=== PATIENT | male | born 1985 | race Caucasian/White ===

== ENCOUNTER 2018-09-09 21:49 | Emergency (ER) | payer OTHER ==
[~2018-09-09] VITALS: Ht 177.8 cm; Wt 95.2 kg
[~2018-09-09 21:49] MED LIST: CODACE30 PO; CYCL10 PO; IBUP200; NAPR500 PO; OXYACE7.5T PO; RXCODACET PO; RXCYCL10 PO; RXOXYACE PO; SULTRIDS PO
[2018-09-09] MEDS ORDERED: BENZ100A PO (23:40)
== END 2018-09-09 23:47 | disposition home or self-care (01) ==
LOC: ER 21:49
DX: J11.1 Influenza due to unidentified influenza virus with other respiratory manifestations (principal); R04.2 Hemoptysis
CPT/HCPCS: 71046; 99283-25

== ENCOUNTER 2020-08-15 14:16 | Emergency (ER) | payer OTHER ==
[~2020-08-15] VITALS: Ht 180.3 cm; Wt 99.8 kg
[~2020-08-15 14:16] MED LIST changes: +BENZ100A PO
[2020-08-15 15:31] LABS: BASOPHILS ABSOLUTE AUTO 0.03 K/mm3 (0.00-0.23); BASOPHILS PERCENT AUTO 0 % (0-2); EOSINOPHILS ABSOLUTE AUTO 0.21 K/mm3 (0.00-0.68); EOSINOPHILS PERCENT AUTO 3 % (0-6); Hematocrit 43.5 % (37.0-53.0); Hemoglobin 15.4 g/dL (13.5-17.5); IMMATURE GRAN ABSOLUTE AUTO 0.03 K/mm3 (0.00-0.10); IMMATURE GRAN PERCENT AUTO 0 % (0-1); LYMPHOCYTES ABSOLUTE AUTO 2.37 K/mm3 (0.84-5.20); LYMPHOCYTES PERCENT AUTO 28 % (21-46); MONOCYTES ABSOLUTE AUTO 1.04 K/mm3 (0.16-1.47); MONOCYTES PERCENT AUTO 12 % (4-13); Mean Corpuscular HGB 29.6 pg (26.0-34.0); Mean Corpuscular HGB Conc 35.4 g/dL (31.5-36.5); Mean Corpuscular Volume 84 fL (80-100); Mean Platelet Volume 13.3 fL (9.1-12.4); NEUTROPHILS ABSOLUTE AUTO 4.69 K/mm3 (1.96-9.15); NEUTROPHILS PERCENT AUTO 56 % (41-73); Platelet Count 194 K/mm3 (150-400); RDW Coefficient Variation 11.7 % (11.7-14.2); RDW Standard Deviation 35.4 fL (35.1-46.3); Red Blood Cell Count 5.21 M/mm3 (4.30-5.90); White Blood Cell Count 8.37 K/mm3 (4.00-11.30)
[2020-08-15 15:45] LABS: Alanine Aminotransfer (ALT/SGP 38 U/L (12-78); Albumin, Blood 4.3 g/dL (3.4-5.0); Albumin/Globulin Ratio 1.3 (0.8-1.8); Alk Phos 93 U/L (50-136); Anion Gap 8 mmol/L (6-16); Aspartate Aminotrans (AST/SGOT 23 U/L (12-37); Bilirubin, Total 0.4 mg/dL (0.1-1.0); Blood Urea Nitrogen 11 mg/dL (8-24); Bun/Creatinine Ratio 11.4 (12.0-20.0); CO2, Blood 23 mmol/L (21-32); Calcium, Blood 8.8 mg/dL (8.5-10.1); Chloride, Blood 109 mmol/L (98-108); Creatinine, Blood 0.96 mg/dL (0.60-1.20); Globulin, Blood 3.4 g/dL (2.2-4.0); Glomerular Filtration Rate >60 (60-); Glucose, Blood 97 mg/dL (70-99); Potassium, Blood 3.3 mmol/L (3.5-5.5); Sodium, Blood 140 mmol/L (136-145); Total Protein, Blood 7.7 g/dL (6.4-8.2); Troponin I <0.015 ng/mL (0.000-0.040)
== END 2020-08-15 17:08 | disposition home or self-care (01) ==
LOC: ER 14:16
PROVIDERS: Physician Assistant
DX: F41.0 Panic disorder [episodic paroxysmal anxiety] (principal)
CPT/HCPCS: 36415; 70450; 71046; 80053; 82947; 84484; 85025; 85379; 93005; 93010; 96374; 99284-25; J2060

== ENCOUNTER 2023-01-25 07:47 | Day surgery (SDC) | payer OTHER ==
[~2023-01-25] VITALS: Ht 177.8 cm; Wt 22.7 kg
[2023-01-25] MEDS ORDERED: ALBU90OI INH (08:18)
[2023-01-25 09:35] VITALS: BP 119/70
== END 2023-01-25 09:44 | disposition home or self-care (01) ==
LOC: ORSCSDS 07:47
PROVIDERS: Specialist
PROC: 0DBE8ZX Excision of Large Intestine, Via Natural or Artificial Opening Endoscopic, Diagnostic (ICD-10-PCS; principal; 2023-01-25 09:00)
PROC: 0DB98ZX Excision of Duodenum, Via Natural or Artificial Opening Endoscopic, Diagnostic (ICD-10-PCS; principal; 2023-01-25 09:00)
PROC: 0DB68ZX Excision of Stomach, Via Natural or Artificial Opening Endoscopic, Diagnostic (ICD-10-PCS; principal; 2023-01-25 09:00)
DX: R19.7 Diarrhea, unspecified (principal); Z79.82 Long term (current) use of aspirin; K29.80 Duodenitis without bleeding
CPT/HCPCS: 88305; 88342; J2250; J2704; J7120

== ENCOUNTER → 2024-04-06 | Outpatient (CLI) | payer OTHER ==
[~2024-04-06] MED LIST changes: +ALBU90OI INH
[2024-04-07 21:45] LABS: Adenovirus F 40/41 Not Detected (NOT DETECT); Astrovirus Not Detected (NOT DETECT); Campylobacter Sp Not Detected (NOT DETECT); Cryptosporidium Not Detected (NOT DETECT); Cyclospora Cayetanensis Not Detected (NOT DETECT); E. Coli O157 Not Detected (NOT DETECT); Entamoeba Histolytica Not Detected (NOT DETECT); Enteroaggregative E. coli-EAEC Not Detected (NOT DETECT); Enteropathogenic E. coli-EPEC Not Detected (NOT DETECT); Enterotoxigenic E. coli-ETEC Not Detected (NOT DETECT); Giardia Lamblia Not Detected (NOT DETECT); Norovirus GI/GII Not Detected (NOT DETECT); Plesiomonas Shigelloides Not Detected (NOT DETECT); Rotavirus A Not Detected (NOT DETECT); Salmonella Sp Not Detected (NOT DETECT); Sapovirus Not Detected (NOT DETECT); Shiga Toxin-prod E. coli-STEC Not Detected (NOT DETECT); Shigella/Enteroin E. coli-EIEC Not Detected (NOT DETECT); Vibrio Cholerae Not Detected (NOT DETECT); Vibrio Sp Not Detected (NOT DETECT); Yersinia Enterocolitica Not Detected (NOT DETECT)
[2024-04-10 13:34] LABS: PANCREATIC ELASTASE,FECAL 89 ug/g (>=100)
== END | disposition home or self-care (01) ==
LOC: LAB SHORT 19:53 → LAB 19:53 → LAB SHORT 04-07 19:21
PROVIDERS: Physician Assistant Medical
DX: R19.7 Diarrhea, unspecified (principal)
CPT/HCPCS: 82653; 87507

== ENCOUNTER 2025-01-27 08:15 | Day surgery (SDC) | payer OTHER ==
[~2025-01-27] VITALS: Ht 177.8 cm; Wt 101.9 kg
[2025-01-27] VITALS (13 sets, daily range): BP systolic 103–144; BP diastolic 56–94
[~2025-01-27 08:15] MED LIST changes: +CREON DR 36,001 EACH PO; +CeFAZolin Sodium 2,000 MG in NS 100 ML IV SCH; +Dexamethasone Sod Phos 10 MG/ML 1ML VIAL ONE; +FentaNYL Citrate 50 MCG/ML 2 ML Injection ONE; +OMEP20ER PO; +Ondansetron HCl 2 MG / ML 2ML Vial ONE; +Rocuronium Bromide 10 MG/ML 5ML Injection IV ONE
[2025-01-27] MEDS ORDERED: Bupivacaine 0.5% HCl 5 MG/ML 30MLVIAL ONE ×2 (08:37→09:36)
[2025-01-27] MEDS ORDERED: Midazolam HCl 1MG / ML 2ML Vial IV ONE (08:55)
[2025-01-27] MEDS ORDERED: Lidocaine HCl 4% 5 ML SDA ONE (09:02)
[2025-01-27] MEDS ORDERED: Ketorolac Tromethamine 30mg Vial ONE (09:19)
[2025-01-27] MEDS ORDERED: Sugammadex Sodium 200 MG/2ML SDV (100 MG/ML) ONE ×2 (09:19→11:15)
[2025-01-27] MEDS ORDERED: Rocuronium Bromide 10 MG/ML 5ML Injection IV ONE (09:25)
[2025-01-27] MEDS ORDERED: FentaNYL Citrate 50 MCG/ML 2 ML Injection ONE (11:04)
[2025-01-27] MEDS ORDERED: OxyCODONE 5 mg/Acetamin 325 mg TABLET PO PRN (11:35)
[2025-01-27] MEDS ORDERED: Ondansetron HCl 2 MG / ML 2ML Vial IV ONE (12:20)
[2025-01-27] MEDS ORDERED: Ondansetron HCl 2 MG / ML 2ML Vial ONE (12:23)
--- NOTE | 2025-01-27 13:34 | NUR ---
Patient up to Ambulate independently. Gait steady. PT ABLE TO VOID. MEDICATED FOR PAIN AND STATES IT IS TOLERABLE. MEDICATED FOR NAUSEA AND REPORTS NAUSEA HAS IMPROVED.DERMABOND X3 REMAINS CDI. NO NUMBNESS OR TINGLING IN LOWER EXTREMITIES. Discharge instructions reviewed with patient AND . verbalizes understanding. Copy given to patient to take home INCLUDING RX FOR PAIN MEDICATION. ICE PACKS GIVEN TO PATIENT FOR HOME USE.
== END 2025-01-27 13:37 | disposition home or self-care (01) ==
LOC: ORSCMMR 08:15 → ORD 09:30 → ORSCMMR 09:30
PROVIDERS: Surgery
PROC: 3E0T3BZ Introduction of Anesthetic Agent into Peripheral Nerves and Plexi, Percutaneous Approach (ICD-10-PCS; principal; 2025-01-27 09:00)
PROC: 0YUA4JZ Supplement Bilateral Inguinal Region with Synthetic Substitute, Percutaneous Endoscopic Approach (ICD-10-PCS; principal; 2025-01-27 09:00)
PROC: 8E0W4CZ Robotic Assisted Procedure of Trunk Region, Percutaneous Endoscopic Approach (ICD-10-PCS; principal; 2025-01-27 09:00)
DX: K40.00 Bilateral inguinal hernia, with obstruction, without gangrene, not specified as recurrent (principal); K66.0 Peritoneal adhesions (postprocedural) (postinfection); D17.6 Benign lipomatous neoplasm of spermatic cord; Z86.16 Personal history of COVID-19; E66.9 Obesity, unspecified; Z68.32 Body mass index [BMI] 32.0-32.9, adult; K76.89 Other specified diseases of liver
CPT/HCPCS: A9270; C1781; J0690; J1100; J1885; J2003; J2250; J2405; J2704; J3010; J7120